=== PATIENT | female | born 1980 | race Caucasian/White ===

== ENCOUNTER 2017-10-05 14:16 | Emergency (ER) | payer SELFPAY ==
--- NOTE | 2017-10-05 16:14 | EDM.PDOC ---
ED HPI GENERAL MEDICAL PROBLEM - General Chief Complaint: Abdominal Pain Stated Complaint: VOMITING/UTI/STOMACH SWELLING Time Seen by Provider: 10/05/17 15:00 Source of Information: Reports: Patient History Limitations: Reports: No Limitations - History of Present Illness INITIAL COMMENTS - FREE TEXT/NARRATIVE: Patient is a 29-year-old female presents ED complaining of UTI like symptoms for the past 2 weeks off-and-on. Has been taking Azo. Minimal relief with the Azo. In addition yesterday developed some nausea and suprapubic abdominal discomfort. States she's had some chills off and on. There's been no emesis. No documented fever. No abnormal vaginal discharge. No pain along the CVA borders. There was some lower back discomfort noted. Patient underwent tubal ligation. She does have a history of frequent UTIs. She offers no additional complaints at this time. She has been eating and drinking well. Lower Abdominal Pain Score (Numeric/FACES): 5 - Related Data Allergies Allergy/AdvReac Type Severity Reaction Status Date / Time Penicillins Allergy Rash Verified 10/05/17 14:37 Home Meds: Home Meds ClonazePAM [KlonoPIN] 0.5 mg PO 10/05/17 [History] Past Medical History - Past Health History Medical/Surgical History: Denies Medical/Surgical History Other OB/BYN History: cyst on her ovary removed Psychiatric History: Reports: None - Past Surgical History Female Surgical History: Reports: Breast Reconstruction Social & Family History - Family History Family Medical History: Noncontributory - Tobacco Use Smoking Status *Q: Never Smoker ED ROS GENERAL - Review of Systems Review Of Systems: ROS reveals no pertinent complaints other than HPI. ED EXAM, RENAL/ - Physical Exam Exam: See Below Exam Limited By: No Limitations General Appearance: Alert, WD/WN, No Apparent Distress Ears: Hearing Grossly Normal Nose: Normal Inspection Throat/Mouth: Normal Inspection, Normal Oropharynx, Normal Voice, No Airway Compromise Neck: Normal Inspection, Supple Respiratory/Chest: No Respiratory Distress, Lungs Clear, Normal Breath Sounds, No Accessory Muscle Use Cardiovascular: Normal Peripheral Pulses, Regular Rate, Rhythm GI/Abdominal: Normal Bowel Sounds, Soft, Non-Tender, No Organomegaly, No Distention Back Exam: Normal Inspection, Full Range of Motion. No: CVA Tenderness (L), CVA Tenderness (R) Extremities: Normal Inspection Neurological: Alert, Oriented, CN II-XII Intact, Normal Cognition, No Motor/ Sensory Deficits Psychiatric: Normal Affect, Normal Mood Skin Exam: Warm, Dry, Intact, Normal Color Course - Vital Signs Last Recorded V/S: Last Vital Signs Temp 98.5 F 10/05/17 14:38 Pulse 92 10/05/17 14:38 Resp 18 10/05/17 14:38 BP 127/92 H 10/05/17 14:38 Pulse Ox 100 10/05/17 14:38 - Orders/Labs/Meds Orders: Active Orders 24 hr Category Date Time Status CULTURE URINE [RM] Stat Lab 10/05/17 14:37 Received Labs: Laboratory Tests 10/05/17 10/05/17 10/05/17 Range/Units 14:37 15:22 15:22 WBC 9.30 (3.98-10.04) K/mm3 RBC 4.29 (3.98-5.22) M/mm3 Hgb 13.3 (11.2-15.7) gm/L Hct 40.6 (34.1-44.9) % MCV 94.6 (79.4-94.8) fl MCH 31.0 (25.6-32.2) pg MCHC 32.8 (32.2-35.5) g/dl RDW Std Deviation 44.0 (36.4-46.3) fL Plt Count 266 (182-369) K/mm3 MPV 10.1 (9.4-12.3) fl Neut % (Auto) 67.1 (34.0-71.1) % Lymph % (Auto) 22.3 (19.3-51.7) % [place] % (Auto) 8.4 (4.7-12.5) % Eos % (Auto) 1.6 (0.7-5.8) Baso % (Auto) 0.5 (0.1-1.2) % Neut # (Auto) 6.24 H (1.56-6.13) K/mm3 Lymph # (Auto) 2.07 (1.18-3.74) K/mm3 [place] # (Auto) 0.78 H (0.24-0.36) K/mm3 Eos # (Auto) 0.15 (0.04-0.36) K/mm3 Baso # (Auto) 0.05 (0.01-0.08) K/mm3 Sodium 140 (136-145) mEq/L Potassium 4.2 (3.5-5.1) mEq/L Chloride 101 (98-107) mEq/L Carbon Dioxide 27 (21-32) mEq/L Anion Gap 16.2 H (5-15) BUN 10 (7-18) mg/dL Creatinine 0.8 (0.55-1.02) mg/dL Est Cr Clr Drug Dosing 81.93 mL/min Estimated GFR (MDRD) > 60 (>60) mL/min BUN/Creatinine Ratio 12.5 L (14-18) Glucose 91 (74-106) mg/dL Calcium 9.3 (8.5-10.1) mg/dL Total Bilirubin 0.5 (0.2-1.0) mg/dL AST 17 (15-37) U/L ALT 25 (14-59) U/L Alkaline Phosphatase 64 (46-116) U/L C-Reactive Protein 1.5 H* (<1.0) mg/dL Total Protein 7.3 (6.4-8.2) g/dl Albumin 4.2 (3.4-5.0) g/dl Globulin 3.1 gm/dL Albumin/Globulin Ratio 1.4 (1-2) Urine Color [place] H (Yellow) Urine Appearance Slt cloudy H (Clear) Urine pH 5.5 (5.0-8.0) Ur Specific [place] 1.015 (1.005-1.030) Urine Protein 2+ H (Negative) Urine Glucose (UA) Trace H (Negative) Urine Ketones Trace H (Negative) Urine Occult Blood Negative (Negative) Urine Nitrite Positive H (Negative) Urine Bilirubin Negative (Negative) Urine Urobilinogen 2.0 H (0.2-1.0) Ur Leukocyte Esterase 3+ H (Negative) Urine RBC 0-5 (0-5) /hpf Urine WBC 50-75 H (0-5) /hpf Ur Epithelial Cells 5-10 H (0-5) /hpf Urine Bacteria Few (FEW) /hpf Urine Mucus Not seen (FEW) /hpf Meds: Medications Discontinued Medications Generic Name Dose Route Start Last Admin Trade Name Freq PRN Reason Stop Dose Admin Nitrofurantoin Macrocrystals 200 mg 10/05/17 16:15 10/05/17 16:32 Macrobid PO 10/05/17 16:16 200 mg ONETIME ONE Administration - Re-Assessments/Exams Free Text/Narrative Re-Assessment/Exam: Initial labs and studies include CBC, chem 14, UA, and CRP. Labs reviewed: CBC essentially normal, chem. Panel essentially normal, CRP mildly elevated 1.5. UA color: [place], cloudy, protein 2+, trace glucose, ketones trace, nitrates positive, leukocyte esterase 3+, urine RBC 0-5, urine wbc's 50-75, urine epithelial cells 5-10. Urine culture obtained. Results can be skewed with taking Azo and also appears to be mildly contaminated. With history will start patient on Macrobid 100 mg twice a day for 5 days. She'll follow up with PCP at conclusion of therapy to ensure resolution. Departure - Departure Time of Disposition: 16:16 Disposition: Home, Self-Care 01 Condition: Good Clinical Impression: UTI (urinary tract infection) Qualifiers: Urinary tract infection type: site unspecified Hematuria presence: with hematuria Qualified Code(s): N39.0 - Urinary tract infection, site not specified - Discharge Information Instructions: Urinary Tract Infection, Adult, [id number] Referrals: PCP,Not In Area [Primary Care Provider] - Forms: ED Department Discharge Additional Instructions: You have a UTI. Urine culture obtained. Will start you on Macrobid 100 mg twice a day for 5 days. In addition I prescribed Zofran 4 mg 1 tablet every 6 hours as needed for nausea and vomiting. Push the fluids. Utilize Tylenol and/or ibuproefen for any abdominal discomfort. See your PCP at conclusion of therapy to ensure resolution. Return to ED if you develop any new or worsening symptoms. - My Orders Last 24 Hours: My Active Orders 10/05/17 14:37 CULTURE URINE [RM] Stat - Assessment/Plan Last 24 Hours: My Active Orders 10/05/17 14:37 CULTURE URINE [RM] Stat
[2017-10-05] MEDS ORDERED: Nitrofurantoin Monohydrate/Macrocrystalline 100 MG Cap PO ONE (16:15)
== END 2017-10-05 16:35 | disposition home or self-care (01) ==
LOC: JD.ED 14:16
DX: N39.0 Urinary tract infection, site not specified (principal); Z88.0 Allergy status to penicillin
CPT/HCPCS: 36415; 80053; 81001; 85025; 86140; 87086; 99283; A9270

== ENCOUNTER 2017-10-07 15:27 | Emergency (ER) | payer SELFPAY ==
--- NOTE | 2017-10-07 19:22 | EDM.PDOC ---
ED HPI GENERAL MEDICAL PROBLEM - General Chief Complaint: General Stated Complaint: HALLUCINATION,DELUSIONAL Time Seen by Provider: 10/07/17 17:45 Source of Information: Reports: Patient, Old Records (October 05 ER record) History Limitations: Reports: No Limitations - History of Present Illness INITIAL COMMENTS - FREE TEXT/NARRATIVE: 37-year-old female presents for evaluation and treatment of an adverse reaction to her antibiotic. Patient was seen in the ER on 10-05-17. She was found to have a urinary tract infection. She was started on Macrobid twice a day. Please see that record for complete details. Patient reports since being seen she has had "weird sensations". reports delusions, fatigue, chills, confusion, visual changes, shakes, tremors, chills and diaphoresis. She states that she is developing since starting the Macrobid. She reports some patches been very sensitive to antibiotics. Denies any suicidal ideation or plan. Patient reports prior to being seen on the she had urinary tract infection symptoms for 2 weeks. She denies any UTI symptoms currently. Patient will also prescribe Zofran during our visits. She states that she has not taken any. - Related Data Allergies Allergy/AdvReac Type Severity Reaction Status Date / Time Penicillins Allergy Rash Verified 10/07/17 15:58 Home Meds: Home Meds ClonazePAM [KlonoPIN] 0.5 mg PO DAILY 10/05/17 [History] Nitrofurantoin Monohyd/M-Cryst [Macrobid 100 mg Capsule] 100 mg PO BID 10/07/17 [History] Ondansetron [Zofran ODT] 4 mg PO Q6H PRN 10/07/17 [History] Past Medical History - Past Health History Medical/Surgical History: Denies Medical/Surgical History [employer] History: Reports: Other OB/BYN History: cyst on her ovary removed Musculoskeletal History: Reports: Arthritis Psychiatric History: Reports: None - Past Surgical History Female Surgical History: Reports: Breast Reconstruction, D&C, Tubal Ligation Social & Family History - Family History Family Medical History: Noncontributory - Tobacco Use Smoking Status *Q: Never Smoker - Caffeine Use Caffeine Use: Reports: None - Recreational Drug Use Recreational Drug Use: No Recreational Drug Type: Reports: Marijuana/Hashish ED ROS GENERAL - Review of Systems Review Of Systems: See Below Constitutional: Reports: Chills, Malaise, Diaphoresis HEENT: Reports: Vision Change : Denies: Dysuria Neurological: Reports: Confusion, Tremors Psychiatric: Denies: Suicidal Ideation ED EXAM, GENERAL - Physical Exam Exam: See Below Exam Limited By: No Limitations General Appearance: Alert, WD/WN, No Apparent Distress Nose: Normal Inspection Throat/Mouth: Normal Inspection, Normal Voice, No Airway Compromise Respiratory/Chest: No Respiratory Distress, Lungs Clear, Normal Breath Sounds Cardiovascular: Normal Peripheral Pulses, Regular Rate, Rhythm, No Murmur GI/Abdominal: Normal Bowel Sounds, Soft, Non-Tender Back Exam: Normal Inspection. No: CVA Tenderness (L), CVA Tenderness (R) Neurological: Alert, Oriented, Normal Cognition Psychiatric: Normal Affect, Normal Mood Skin Exam: Warm, Dry, Normal Color Course - Vital Signs Last Recorded V/S: Last Vital Signs Temp 36.6 C 10/07/17 15:51 Pulse 74 10/07/17 15:51 Resp 18 10/07/17 15:51 BP 114/82 10/07/17 15:51 Pulse Ox 99 10/07/17 15:51 - Orders/Labs/Meds Labs: Laboratory Tests 10/07/17 10/07/17 10/07/17 Range/Units 16:47 18:05 18:05 WBC 5.55 (3.98-10.04) K/mm3 RBC 4.34 (3.98-5.22) M/mm3 Hgb 13.7 (11.2-15.7) gm/L Hct 41.0 (34.1-44.9) % MCV 94.5 (79.4-94.8) fl MCH 31.6 (25.6-32.2) pg MCHC 33.4 (32.2-35.5) g/dl RDW Std Deviation 44.2 (36.4-46.3) fL Plt Count 278 (182-369) K/mm3 MPV 10.1 (9.4-12.3) fl Neut % (Auto) 52.9 (34.0-71.1) % Lymph % (Auto) 36.0 (19.3-51.7) % [place] % (Auto) 7.2 (4.7-12.5) % Eos % (Auto) 3.4 (0.7-5.8) Baso % (Auto) 0.5 (0.1-1.2) % Neut # (Auto) 2.93 (1.56-6.13) K/mm3 Lymph # (Auto) 2.00 (1.18-3.74) K/mm3 [place] # (Auto) 0.40 H (0.24-0.36) K/mm3 Eos # (Auto) 0.19 (0.04-0.36) K/mm3 Baso # (Auto) 0.03 (0.01-0.08) K/mm3 C-Reactive Protein 0.3 (<1.0) mg/dL Urine Color Yellow (Yellow) Urine Appearance Clear (Clear) Urine pH 7.0 (5.0-8.0) Ur Specific [place] 1.015 (1.005-1.030) Urine Protein Negative (Negative) Urine Glucose (UA) Negative (Negative) Urine Ketones Negative (Negative) Urine Occult Blood Negative (Negative) Urine Nitrite Negative (Negative) Urine Bilirubin Negative (Negative) Urine Urobilinogen 0.2 (0.2-1.0) Ur Leukocyte Esterase Negative (Negative) Urine RBC Not seen (0-5) /hpf Urine WBC 0-5 (0-5) /hpf Ur Epithelial Cells 0-5 (0-5) /hpf Urine Bacteria Not seen (FEW) /hpf Urine Mucus Not seen (FEW) /hpf - Re-Assessments/Exams Free Text/Narrative Re-Assessment/Exam: 10/07/17 19:17 Labs have returned other than the UA result. At this time her significant other's anxious to leave as he has to go to work. Unfortunately, due to problem with the UA order I do not have this result back. plan will be to discharge at this time. I will not put her on any antibiotics as her urine culture actually grew out mixed contamination on 10-05. I have obtained her phone number and will call her with the UA results when available. Discharge instructions as documented. 10/07/17 22:08 I called patient's at [phone] and went over the UA results. Her urine looks clear at this time. I do not feel we need to put her on antibiotics. Departure - Departure Time of Disposition: 19:20 Disposition: Home, Self-Care 01 Condition: Fair Clinical Impression: Adverse reaction to antibiotic - Discharge Information Referrals: PCP,Not In Area [Primary Care Provider] - Forms: ED Department Discharge Additional Instructions: Stop the Macrobid. Continue to drink plenty of fluids. We will call you with your urine results if you need further treatment. If you do not hear from us in the next few hours. Call [phone] and ask forr Sofia Pereira. please return to ER if your symptoms change or worsen.
== END 2017-10-07 19:30 | disposition home or self-care (01) ==
LOC: JD.ED 15:27
DX: R41.0 Disorientation, unspecified (principal); R53.83 Other fatigue; T37.8X5A Adverse effect of other specified systemic anti-infectives and antiparasitics, initial encounter; Z79.899 Other long term (current) drug therapy; Z88.0 Allergy status to penicillin
CPT/HCPCS: 36415; 81001; 85025; 86140; 99282; 99285